=== PATIENT | male | born 1965 | race Caucasian/White ===

== ENCOUNTER → 2016-11-03 08:36 | Day surgery (SDC) | payer MEDICARE ==
--- NOTE | 2016-10-26 18:56 | HP ---
PREOPERATIVE HISTORY AND PHYSICAL: DATE OF ADMISSION/SURGERY: 11/03/16 [facility] DATE OF OFFICE VISIT/ENCOUNTER: 10/25/16 ATTENDING SURGEON: Lainey Bautista MD PROCEDURE: Left small finger tendon transfer. CHIEF COMPLAINT: Claw deformity, left small finger. HISTORY OF PRESENT ILLNESS: This is a 51-year-old male who has left hand claw deformity in his little finger as a result of an ulnar nerve laceration at his left wrist, which occurred in October 2015. He did have the nerve laceration repaired by a physician in [place]. Unfortunately, he developed claw finger deformity in the pinky. He has return of sensation to the small finger and the ring finger, but it is not normal yet. He has a persistent claw deformity of the small finger and he is interested at this point in pursuing surgical intervention to correct the deformity. PAST MEDICAL HISTORY: 1. Parkinson's. 2. Hypertension. 3. GERD. 4. Depression. 5. Gout. PAST SURGICAL HISTORY: 1. Left wrist ulnar nerve repair. 2. Right total hip arthroplasty by Dr. Mar. 3. Bilateral carpal tunnel release. 4. Tonsillectomy. 5. Left thumb CMC arthroplasty in [address] Bautista. 6. Right thumb CMC arthroplasty in [address] Bautista. 7. Ganglion cyst excision, right wrist. 8. Right shoulder surgery. CURRENT MEDICATIONS: 1. Alfuzosin HCl ER 10 mg q.h.s. 2. Allopurinol 300 mg daily. 3. Allopurinol 100 mg daily. 4. Aspirin 81 mg daily. 5. Carbidopa/levodopa 10/100 mg 1-1/2 tabs t.i.d. 6. Finasteride 5 mg q.h.s. 7. Losartan potassium 100 mg daily. 8. Men's Multivitamin Plus daily. 9. Omeprazole 40 mg b.i.d. 10. Propranolol HCl 20 mg b.i.d. 11. Sertraline HCl 50 mg daily. 12. Vitamin E 400 mg daily. ALLERGIES: CYMBALTA causes elevated liver enzymes. FAMILY MEDICAL HISTORY: Heart disease and cancer. SOCIAL HISTORY: The patient is retired. He denies smoking, but does admit to chewing tobacco on a regular basis. He denies illicit drug use. He admits to regular alcohol intake approximately 2 to 3 beers per day. REVIEW OF SYSTEMS: General: Negative for fevers, chills, or night sweats. No known anesthesia problems. HEENT: Negative for headache, lightheadedness, or syncopal episodes. Integumentary: Negative for abrasions, lesions, or open wounds. Cardiothoracic: Positive for hypertension. Negative for chest pain, palpitations, or edema. Pulmonary: Negative for shortness of breath with exertion, chronic cough, COPD. GI: Positive for GERD. Negative for nausea, vomiting, diarrhea, or constipation. : Positive for urinary frequency. Negative for urgency, history of UTIs, or kidney problem. Musculoskeletal: Positive for current complaint. Neurological: Positive for Parkinson's. Negative for history of seizure, stroke, or epilepsy. Positive for depression. Endocrine: Negative for diabetes or thyroid issues. Hematologic: Positive for history of DVT in 2003. Negative for easy bruising, anemia, or excessive bleeding. Infectious Disease: Positive for history of MRSA. Negative for hepatitis C or HIV. PHYSICAL EXAMINATION GENERAL: Well-developed, well-nourished, 51-year-old male in no acute distress. VITAL SIGNS: Height 5 feet 10 inches, weight 300 pounds, pulse rate 89, blood pressure 140/88. HEENT: Normocephalic, atraumatic. Pupils are equal, round, and reactive to light and accommodation. Extraocular movements are intact. NECK: Supple. No palpable lymph nodes. Throat is clear. PULMONARY: Lungs are clear to auscultation bilaterally. No wheezes, rales, or rhonchi. CARDIOTHORACIC: Regular rate and rhythm. S1, S2. No murmurs, rubs, or gallops. No edema. ABDOMEN: Positive bowel sounds, soft, nontender. NEUROLOGIC: Alert and oriented x3. Cranial nerves II through XII are intact. Sensation is intact to light touch. PERIPHERAL VASCULAR: Radial and ulnar pulses are 2+, and there is negative Kenji test. MUSCULOSKELETAL: On exam of the left wrist/hand, there is a well-healed scar proximal to the wrist flexion crease. He has some tenderness to palpation there. He has a positive Tinel's sign and a lot of tingling and deep scar massage is painful and bothersome to him. He has full motion of his wrist in flexion and extension. Decreased sensation in his little finger. He has a flexion deformity of the small finger and he cannot actively extend it unless he blocks through MP joint. Ring finger is normal. 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 PLAN: The patient is scheduled to undergo a left small finger tendon transfer with Dr. Bautista on 11/03/16. He will return to the office 10 or 14 days postop for followup and suture removal. A prescription for [place] was e-scribed to the patient's pharmacy for postoperative pain management. PAXTON SCHWARZ [id number]/[facility] #: [id number] [place]
[~2016-11-03 08:36] MED LIST: Acetaminophen TAB* 325 MG PO PRN; Buffered Lidocaine 1% SYRIN* 3 ML/SYR SYRINGE INTRADERM ONE; Famotidine IV* 10 MG/ML 2 ML (20 mg) ONE; HYDROcodone/ACETAMIN 5-325 MG* 1 TAB PO PRN; KETAMINE HCL* 50 MG/ML 10 ML VIAL ONE; Ketorolac INJ* 30 MG/ML 1 ML VIAL ONE; Lidocaine 1% INJ* 10 MG/ML 30 ML SDV ONE; Lidocaine 2% PF* 5 ML VIAL ONE; Midazolam* 1 MG/ML 2 ML VIAL (2 MG) ONE; NS 0.9% 1000 ML* 1,000 ML IV SCH; Ondansetron INJ* 2 MG/ML VIAL IV PRN; PROCHLORPERAZINE INJ 5 MG/ML 2 ML VIAL IV PRN; Propofol* 10 MG/ML 20 ML BTL IV PUSH ONE; ceFAZolin 2 GM PREMIX(*) 2 GM/50 ML BAG IVPB ONE; diPHENhydraMINE IV* 50 MG/ML 1 ml VIAL (BENADRYL) ONE
[2016-11-03 12:11] VITALS: BP 143/103
--- NOTE | 2016-11-04 06:10 | OP ---
OPERATIVE NOTE: DATE OF OPERATION: 11/03/16 - [facility] DATE OF : 63 SURGEON: Lainey Bautista MD FAMILY PROGRAM SPECIALIST: PAXTON Blank ANESTHESIOLOGIST: Seb Houston MD ANESTHESIA: Local MAC. PRE-OP DIAGNOSIS: Left ulnar claw hand, status post ulnar nerve transection. POST-OP DIAGNOSIS: Left ulnar claw hand, status post ulnar nerve transection. OPERATIVE PROCEDURE: Left small finger tendon transfer. ESTIMATED BLOOD LOSS: Zero. TOURNIQUET TIME: About 15 minutes. INDICATIONS: Albert is a 51-year-old male who suffered a laceration of his distal ulnar nerve. He has clawing of his small finger, which prevents him from extending the PIP and DIP joints. He presents for a FDS tendon transfer to treat the claw finger. DESCRIPTION OF PROCEDURE: The patient was brought to the operating room, was given a sedation anesthetic, and a digital block with 10 cc of 1% plain lidocaine. The skin of his left hand and forearm was prepped and draped in the usual sterile fashion. The hand and forearm were exsanguinated and the tourniquet elevated to 250 mmHg. A Zeke incision was made over the distal aspect of the palm and up on to the small finger. The flexor tendon sheath was carefully dissected out and opened in the interval between the A1 and the A2 pulleys. The FDS tendon was transected distally and then transferred anterior to the A1 rukhsana and sutured back on to itself to place the MP joint in about 30 degrees of flexion. Several sutures were used to secure the tendon transfer. The wound was irrigated and the skin edges were reapproximated with 4 -0 nylon suture. The wound was dressed with Xeroform, 4x4, Webril, and a dorsal extension blocking splint keeping the MP joint in about 70 degrees of flexion. The patient tolerated the procedure well and was brought to the recovery room in good condition. [id number]/[facility] #: [id number] [facility]PITALAnamika
== END | disposition home or self-care (01) ==
LOC: OREAST 08:36
PROVIDERS: ATTEND Orthopaedic Surgery
DX: M21.512 Acquired clawhand, left hand (principal); I10 Essential (primary) hypertension; G20 Parkinson's disease; M10.9 Gout, unspecified; Z72.0 Tobacco use; G47.33 Obstructive sleep apnea (adult) (pediatric)
CPT/HCPCS: J0690; J1200; J1885; J2001; J2250; J2704

== ENCOUNTER 2017-01-22 08:19 | Day surgery (SDC) | payer MEDICARE ==
[~2017-01-22 08:19] MED LIST changes: -Acetaminophen TAB* 325 MG PO PRN; +Buffered Lidocaine 0.9% SYRIN* 5 ML/SYR SYRINGE INTRADERM ONE; -Buffered Lidocaine 1% SYRIN* 3 ML/SYR SYRINGE INTRADERM ONE; +Famotidine IV* 10 MG/ML 2 ML (20 mg) IV ONE; -Famotidine IV* 10 MG/ML 2 ML (20 mg) ONE; -HYDROcodone/ACETAMIN 5-325 MG* 1 TAB PO PRN; -KETAMINE HCL* 50 MG/ML 10 ML VIAL ONE; -Ketorolac INJ* 30 MG/ML 1 ML VIAL ONE; -Lidocaine 1% INJ* 10 MG/ML 30 ML SDV ONE; -Lidocaine 2% PF* 5 ML VIAL ONE; -Midazolam* 1 MG/ML 2 ML VIAL (2 MG) ONE; -NS 0.9% 1000 ML* 1,000 ML IV SCH; -Ondansetron INJ* 2 MG/ML VIAL IV PRN; -PROCHLORPERAZINE INJ 5 MG/ML 2 ML VIAL IV PRN; -Propofol* 10 MG/ML 20 ML BTL IV PUSH ONE; -ceFAZolin 2 GM PREMIX(*) 2 GM/50 ML BAG IVPB ONE; -diPHENhydraMINE IV* 50 MG/ML 1 ml VIAL (BENADRYL) ONE
[2017-01-22] MEDS ORDERED: Buffered Lidocaine 0.9% SYRIN* 5 ML/SYR SYRINGE ONE (08:29)
[2017-01-22] MEDS ORDERED: ceFAZolin 2 GM PREMIX(*) 2 GM/50 ML BAG IVPB ONE (08:29)
[2017-01-22] MEDS ORDERED: Famotidine IV* 10 MG/ML 2 ML (20 mg) ONE (08:29)
[2017-01-22] MEDS ORDERED: Midazolam* 1 MG/ML 5 ML VIAL (5 MG) ONE (08:47)
[2017-01-22] MEDS ORDERED: fentaNYL* 50 MCG/ML 2 ML VIAL (100 MCG VIAL) ONE ×2 (08:47→10:42)
[2017-01-22] MEDS ORDERED: Propofol* 10 MG/ML 20 ML BTL IV PUSH ONE (09:05)
[2017-01-22] MEDS ORDERED: Lidocaine 2% PF * 5 ML VIAL ONE (09:05)
[2017-01-22] MEDS ORDERED: DiMENhydriNATE IV* 50 MG/ML VIAL ONE (09:05)
[2017-01-22] MEDS ORDERED: Ondansetron INJ* 2 MG/ML VIAL ONE (09:05)
[2017-01-22] MEDS ORDERED: Ketorolac INJ* 30 MG/ML 1 ML VIAL ONE (09:05)
[2017-01-22] MEDS ORDERED: Dexamethasone IV* 4 MG/ML 1 ML (4 MG) ONE (09:05)
[2017-01-22] MEDS ORDERED: Succinylcholine* 20 MG/ML 10 ML VIAL ONE (09:05)
[2017-01-22] MEDS ORDERED: Oxymetazoline 0.05% NASAL SPR* 15 ML BTL BOTH NARES ONE (10:05)
[2017-01-22] MEDS ORDERED: Oxymetazoline 0.05% NASAL SPR* 15 ML BTL ONE (10:07)
[2017-01-22] MEDS ORDERED: Bupivacaine 0.25% EPI 200,000* 30 ML SDV ONE (10:16)
[2017-01-22] MEDS ORDERED: Midazolam* 1 MG/ML 2 ML VIAL (2 MG) ONE (10:36)
[2017-01-22] MEDS ORDERED: KETAMINE HCL* 50 MG/ML 10 ML VIAL ONE (10:41)
[2017-01-22] MEDS ORDERED: Phenylephrine IV* 40 MCG/ML 10 ML SYRINGE ONE (11:03)
[2017-01-22] MEDS ORDERED: oxyCODONE/Acetamin 5/325 MG* TAB PO PRN (11:25)
[2017-01-22] MEDS ORDERED: HYDROmorphone* 1 MG/ML 1 ML SYR IV PRN (11:25)
[2017-01-22] MEDS ORDERED: DiMENhydriNATE IV* 50 MG/ML VIAL IV PUSH PRN (11:25)
[2017-01-22 12:44] VITALS: BP 120/72
--- NOTE | 2017-01-23 04:17 | OP ---
DATE OF OPERATION: 01/22/17 [facility] DATE OF : 63 SURGEON: Tim Mar MD CLINICAL PROFESSOR: Sierra Alexander RPA ANESTHESIOLOGIST: Jacque Rivera MD ANESTHESIA: General. PRE-OP DIAGNOSIS: Painful hardware, right clavicle. POST-OP DIAGNOSIS: Painful hardware, right clavicle. OPERATIVE PROCEDURE: Removal of hardware, right clavicle. ESTIMATED BLOOD LOSS: Less than 20 cc. COMPLICATIONS: None. INDICATIONS: Mr. Lindo is a 51-year-old male who had sustained a displaced clavicle fracture and underwent an ORIF with a plate, 6 screws, and 2 lag screws elsewhere. The clavicle had healed quite well, but he had very specific pain with the plate. I discussed with him that removing the plate should work well, so that he was not as painful directly over the clavicle. I warned him that we always worry quite a bit about the clavicle being weak and sustaining another fracture. Furthermore, it appeared he had two lag screws under the plate and I discussed with him that if these were obvious, we would take them out but I would not go digging, making holes in his clavicle to try and fish them out. Risks of surgery such as infection, scar formation, stiffness, continued pain, as well as refracture of the clavicle were discussed. He was declared medically optimized and wished to proceed. DESCRIPTION OF PROCEDURE: The patient was brought to the OR and general endotracheal anesthesia was established. He was then sat up in a beach chair position. Care was taken to make sure that his arms were nicely padded and his ears were not compressed by the head piece. Right clavicular area was prepped and then draped. Tissues under the old incision were infiltrated using with 0.25% Marcaine with epinephrine and more would be given at the end of the case. Incision was made directly over the old scar and carried down through the subcutaneous tissues. In the center of his scar, I could feel the clavicle and the head of one of the screws and this was used as a landmark. Dissection was carried down in that direction until I had the scar tissue that had formed over the plate and that were sharply incised. From there, using a Garcia and freer, I was able to slowly come down along the plates splitting the soft tissues above and exposing the screws. As the screw was exposed, it was removed and I came first down to the medial side of the plate and then came out to the lateral side. Once all the screws were removed, I was able to come under the plate with a freer. Plate; however, was still captured by the bone as there was bone which had grown over the plate and a small rongeur was used to nibble those pieces of bone. These were saved and would later be bone grafted into the clavicle itself. Once the bone was removed, the plate wiggled quite easily and was easily removed. Rongeur was used to remove the soft tissue bulges which had come up where screws had not been placed along the plate. Rongeur was then used to break up the bone graft and tuck back into the screw holes. Curette had been used to scrape within the screw holes a little bit as well. I could see the corner of one of the screws, but the way the fracture had healed, I would have to remove a good 7 to 8 mm of bone in order to seat the screwdriver. I did not believe it was weakening his bone to such a degree. I could not find the other lag screw. Wound was copiously irrigated using a bulb syringe and the scar and periosteum were repaired together over the clavicle. Subcutaneous tissues were reapproximated using 2-0 Vicryl. Skin was closed using a running Monocryl. Sterile dressing and a sling were applied in the OR. The patient was then extubated in the OR, and was stable on transfer to the recovery room. DISPOSITION/DISCHARGE SUMMARY: Mr. Lindo is a 51-year-old male who just underwent removal of hardware from his right clavicle. He tolerated the procedure well. There were no complications. He is currently being extubated in the OR. He will then be transferred to the recovery room and once he can tolerate p.o., has his pain well controlled, and he can void, he will be discharged home. Prescription for oxycodone was e-scribed in. He has instructions to keep his dressing clean, dry, and intact for the next 3 days but after that, may take down his dressings, cover the incision with a Band-Aid , may shower, wash and get it wet, but should not soak it. He should take very significant precautions not to fall on his outstretched right arm or the point of his right shoulder. He should use a sling and should not lift anything heavier than a pot of coffee. I would like to see him in the office at approximately 10 days to remove his running stitch and make sure he is doing well. If there are any problems or anything odd should occur, the instruction is to give the office a call. [id number]/[facility] #: [id number] [place]
== END 2017-01-22 12:57 | disposition home or self-care (01) ==
LOC: OR 08:19
PROVIDERS: ATTEND Orthopaedic Surgery
DX: T84.84XA Pain due to internal orthopedic prosthetic devices, implants and grafts, initial encounter (principal); Y83.1 Surgical operation with implant of artificial internal device as the cause of abnormal reaction of the patient, or of later complication, without mention of misadventure at the time of the procedure; M16.12 Unilateral primary osteoarthritis, left hip; I10 Essential (primary) hypertension; G20 Parkinson's disease; Z79.82 Long term (current) use of aspirin
CPT/HCPCS: 88300; A9270-GY; J0330; J0690; J1100; J1240; J1885; J2250; J2405; J2704; J3010